=== PATIENT | male | born 1960 | race Caucasian/White ===

== ENCOUNTER 2023-08-23 18:10 | Emergency (ER) | payer BC ==
[2023-08-23 19:21] VITALS: BP 135/76; PULSE 57; RESP 16; TEMP 98.1
--- NOTE | 2023-08-23 21:20 | ED ---
Male Urogenital HPI - General Chief complaint: Urogenital Stated complaint: Unable to urinate Time Seen by Provider: 08/23/23 20:36 Source: patient Mode of arrival: ambulatory Limitations: no limitations - History of Present Illness Initial comments: 62-year-old male presenting as a transfer from [facility]. Patient was seen there today for difficulty urinating. He states that for some time he has had small, "fleshy" pieces in his urine. Today he was unable to urinate and suspects that 1 of these was obstructing. Patient received Berman catheter and his bladder was decompressed. He received a CT scan which showed large bladder diverticulum and a mass associated with the diverticulum abutting the bladder wall. There was concern for neoplasm and patient was transferred for urology consult. he had no infectious process seen on previous lab work, no other acute process identified on lab work. Patient states that he feels well at this time and has no other symptoms. No abdominal pain, flank pain, fever, chills, nausea, vomiting. He has history of a TURP procedure performed by Dr. Kuhn - Related Data Allergies Allergy/AdvReac Type Severity Reaction Status Date / Time No Known Allergies Allergy Verified 08/23/23 18:56 Review of Systems ROS Statement: Those systems with pertinent positive or pertinent negative responses have been documented in the HPI. ROS Other: All systems not noted in ROS Statement are negative. Past Medical History Past Medical History: No Reported History History of Any Multi-Drug Resistant Organisms: None Reported Past Surgical History: No Surgical Hx Reported Past Psychological History: No Psychological Hx Reported Smoking Status: Never smoker Past Alcohol Use History: None Reported Past Drug Use History: None Reported General Exam Limitations: no limitations General appearance: alert, in no apparent distress Head exam: Present: atraumatic, normocephalic Eye exam: Present: normal appearance Neck exam: Present: normal inspection Respiratory exam: Present: normal lung sounds bilaterally. Absent: respiratory distress, wheezes, rales, rhonchi, stridor Cardiovascular Exam: Present: regular rate, normal rhythm, normal heart sounds. Absent: systolic murmur, diastolic murmur, rubs, gallop, clicks GI/Abdominal exam: Present: soft. Absent: distended, tenderness, guarding, rebound, rigid Neurological exam: Present: alert, oriented X3 Psychiatric exam: Present: normal affect, normal mood Skin exam: Present: warm, dry Course Vital Signs 08/23/23 18:53 Temperature 98.1 F Pulse Rate 57 L Respiratory 16 Rate Blood Pressure 135/76 O2 Sat by Pulse 97 Oximetry Medical Decision Making - Medical Decision Making Was pt. sent in by a medical professional or institution (, PA, BOOK TRIMMER, urgent care, hospital, or snf...) When possible be specific @ -Patient transferred from [facility] Did you speak to anyone other than the patient for history (EMS, parent, family, police, friend...)? What history was obtained from this source @ - at bedside Did you review nursing and triage notes (agree or disagree)? Why? @ -[I reviewed and agree with nursing and triage notes] Were old charts reviewed (outside hosp., previous admission, EMS record, old EK G, old radiological studies, urgent care reports/EKG's, snf records)? Report findings @ -Reviewed CT obtained at [facility] which showed grossly distended bladder. Appearance highly suspicious for bladder outlet obstruction or urinary retention. Large bladder diverticulum arising inferior laterally from the left bladder wall. There appears to be a mass associated with the bladder diverticulum abutting from the bladder wall. Underlying neoplasm such as transitional cell carcinoma not excluded. Recommend further evaluation by urological service. Constipation. Overall nonobstructive bowel gas pattern. No significant hydronephrosis. No gross renal or ureteral calculi identified UA showed 2+ blood, otherwise remainder of UA is WNL. CBC and CMP are grossly unremarkable Differential Diagnosis (chest pain, altered mental status, abdominal pain women, abdominal pain men, vaginal bleeding, weakness, fever, dyspnea, syncope, headache, dizziness, GI bleed, back pain, seizure, CVA, palpatations, mental health, musculoskeletal)? @ -Differential includes neoplasm, infectious process, prostate related etiology, structural abnormality, this is not an all-inclusive list EKG interpreted by me (3pts min.). @ -[As above] X-rays interpreted by me (1pt min.). @ -[None done] CT interpreted by me (1pt min.). @ -[None done] U/S interpreted by me (1pt. min.). @ -[None done] What testing was considered but not performed or refused? (CT, X-rays, U/S, labs)? Why? @ -[None] What meds were considered but not given or refused? Why? @ -[None] Did you discuss the management of the patient with other professionals (professionals i.e. , PA, BOOK TRIMMER, lab, RT, psych nurse, child protective services social worker, cathead worker, teacher, medical officer psychiatry, case managers)? Give summary @ -[No] Was smoking cessation discussed for >3mins.? @ -[No] Was critical care preformed (if so, how long)? @ -[No] Were there social determinants of health that impacted care today? How? (Homelessness, low income, unemployed, alcoholism, drug addiction, transportation, low edu. Level, literacy, decrease access to med. care, skilled nursing, rehab)? @ -[No] Was there de-escalation of care discussed even if they declined (Discuss DNR or withdrawal of care, Hospice)? DNR status @ -[No] What co-morbidities impacted this encounter? (DM, HTN, Smoking, COPD, CAD, Cancer, CVA, ARF, Chemo, Hep., AIDS, mental health diagnosis, sleep apnea, morbid obesity)? @ -[None] Was patient admitted / discharged? Hospital course, mention meds given and route, prescriptions, significant lab abnormalities, going to OR and other pertinent info. @ -62-year-old male presenting as a transfer from [facility] for urinary retention. He was seen there today and had a Berman placed for urinary retention. CT showed bladder diverticulum with mass. Transferred to our facility for urology consult. Patient has Berman in place and at this time has UA, CBC, and CMP from previous facility are reviewed UA shows 2+ blood and otherwise findings are WNL. Vital signs are stable. History and physical exam were conducted. I believe that this patient is able to follow-up with urology in the outpatient setting, as does my attending Dr. Arredondo. I discussed this plan with him and he is agreeable. He is provided with urology referral. Berman remains in place and patient is provided with a leg bag. Discharged home. Follow-up with PCP. Report back to ER with any new or worsening symptoms. Discussed return parameters and answered all questions. Patient conveyed verbal understanding and agreed to the plan. I discussed this case in detail with my attending Dr. Arredondo Undiagnosed new problem with uncertain prognosis? @ -[No] Drug Therapy requiring intensive monitoring for toxicity (Heparin, Nitro, Insulin, Cardizem)? @ -[No] Were any procedures done? @ -[No] Diagnosis/symptom? @ -Bladder mass Acute, or Chronic, or Acute on Chronic? @ -Acute Uncomplicated (without systemic symptoms) or Complicated (systemic symptoms)? @ -Uncomplicated Side effects of treatment? @ -[No] Exacerbation, Progression, or Severe Exacerbation? @ -[No] Poses a threat to life or bodily function? How? (Chest pain, USA, MD, pneumonia, PE, COPD, DKA, ARF, appy, cholecystitis, CVA, Diverticulitis, Homicidal, Suicidal, threat to staff... and all critical care pts) @ -Potentially as this may be a neoplasm, it is obvious most importance that patient follows up with urology for further workup and management Disposition Clinical Impression: Bladder mass, Urinary retention Disposition: HOME SELF-CARE Condition: Fair Instructions (If sedation given, give patient instructions): Urinary Retention in Men (ED), Berman Catheter Placement and Care (ED) Additional Instructions: Follow-up with PCP and urologist. Report back to ER with any new or worsening symptoms. Is patient prescribed a controlled substance at d/c from ED?: No Referrals: Ren Orozco MD [Primary Care Provider] - 1-2 days Omar Guthrie MD [STAFF PHYSICIAN] - 1-2 days Time of Disposition: 21:19
== END 2023-08-23 22:13 | disposition home or self-care (01) ==
LOC: EC 18:10
DX: D30.3 Benign neoplasm of bladder (principal); R33.9 Retention of urine, unspecified
CPT/HCPCS: 51702; 99283